=== PATIENT | female | born 1985 | race Hispanic/Latino ===

== ENCOUNTER 2021-07-14 19:42 | Outpatient (CLI) | payer MEDICAID, OTHER ==
[2021-07-14 20:42] VITALS: BP 101/53
[2021-07-14] MEDS ORDERED: LACTATED RINGERS 1,000 ML IV ONE (20:53)
[2021-07-14 21:25] LABS: Bacteria,Urine 2+ /HPF (Negative); Bilirubin,Urine NEG (Negative); Blood,Urine NEG (Negative); Color,Urine Yellow (Yellow); Mucus,Urine FEW /HPF; Protein,Urine <15 mg/dL mg/dL (Negative); Urobilinogen,Urine < 2.0 mg/dL (<2.0)
== END 2021-07-14 22:35 | disposition home or self-care (01) ==
LOC: TRG 19:42 → APU 19:55 → TRG 22:35
PROVIDERS: ATTEND Student in an Organized Health Care Education/Training Program
DX: O62.9 Abnormality of forces of labor, unspecified (principal); O26.893 Other specified pregnancy related conditions, third trimester; R10.30 Lower abdominal pain, unspecified; Z3A.33 33 weeks gestation of pregnancy
CPT/HCPCS: 36415; 59025; 81001; 82731; 96360; J7120; J3490